=== PATIENT | female | born 1945 | race Caucasian/White ===

== ENCOUNTER → 2019-07-08 | Outpatient (CLI) | payer OTHER | LOC: M.ULTRA 12:59 | DX: I65.23 Occlusion and stenosis of bilateral carotid arteries (principal) ==

== ENCOUNTER → 2019-07-19 | Outpatient (CLI) | payer OTHER | LOC: M.LAB 01:40 | DX: E87.6 Hypokalemia (principal) ==

== ENCOUNTER → 2019-10-08 | Outpatient (CLI) | payer OTHER | LOC: M.LAB 09:28 | DX: Z11.59 Encounter for screening for other viral diseases (principal) ==

== ENCOUNTER → 2021-04-11 | Outpatient (CLI) | payer OTHER | LOC: M.RAD 10:15 | DX: Z12.31 Encounter for screening mammogram for malignant neoplasm of breast (principal) ==